=== PATIENT | female | born 2000 | race Caucasian/White ===

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

== ENCOUNTER 2021-12-06 00:42 | Emergency (ER) | payer OTHER ==
[~2021-12-06 00:42] MED LIST changes: +FLAGYL500 MG PO; +PHENERGAN 25 TA25 MG PO
[2021-12-06 00:54] VITALS: TEMP 98.1
[2021-12-06 01:26] LABS: BASO # 0.2 K/mm3 (0.0-0.2); BASO % 1.7 % (0.0-2.0); EOS # 0.1 K/mm3 (0.0-0.7); EOS % 0.9 % (0.0-4.0); GRAN # 5.3 K/mm3 (1.4-6.5); HEMATOCRIT 40.3 % (37.0-47.0); HEMOGLOBIN 13.4 g/dl (12.5-16.0); LYMPH # 2.6 K/mm3 (1.2-3.4); LYMPH % 29.7 % (20.0-51.0); MEAN CELL VOLUME 87 fl (80.0-100.0); MEAN CORPUSCULAR HEMOGLOBIN 29 pg (27-31); MEAN CORPUSCULAR HGB CONC 33 g/dl (33.0-37.0); MEAN PLATELET VOLUME 10.5 fl (7.4-10.4); MONO # 0.6 K/mm3 (0.1-0.6); MONO % 6.6 % (1.7-9.3); PLATELET COUNT 301 K/mm3 (130-400); RED BLOOD COUNT 4.61 M/mm3 (4.10-5.30); REDCELL DISTRIBUTION WIDTH-CV 12.3 % (11.5-14.5)
[2021-12-06 01:36] LABS: INR 1.1 (0.8-3.0); PARTIAL THROMBOPLASTIN TIME 30.1 SECONDS (26.0-37.0); PROTHROMBIN TIME 11.8 SECONDS (9.7-12.8)
[2021-12-06 01:40] LABS: ALBUMIN 4.1 gm/dL (3.5-5.0); BILIRUBIN,TOTAL 1.2 mg/dL (0.2-1.2); CALCIUM 9.8 mg/dL (8.4-10.2); CREATININE, serum 0.72 mg/dL (0.57-1.11); POTASSIUM 3.4 mmol/L (3.5-4.5); TOTAL PROTEIN 6.8 gm/dL (6.2-8.1)
[2021-12-06 02:20] VITALS: BP 126/86; PULSE 96
== END 2021-12-06 02:20 | disposition home or self-care (01) ==
LOC: COL.ER 00:42
PROVIDERS: Student in an Organized Health Care Education/Training Program
DX: R21 Rash and other nonspecific skin eruption (principal)

== ENCOUNTER 2022-02-08 18:33 | Emergency (ER) | payer OTHER ==
[~2022-02-08] VITALS: Ht 172.7 cm; Wt 63.6 kg
[2022-02-08 18:38] VITALS: TEMP 97.2
[2022-02-08 19:39] LABS: BILIRUBIN,TOTAL 0.8 mg/dL (0.2-1.2); CALCIUM 10.2 mg/dL (8.4-10.2); CREATININE, serum 0.81 mg/dL (0.57-1.11); POTASSIUM 3.8 mmol/L (3.5-4.5); TOTAL PROTEIN 8.6 gm/dL (6.2-8.1)
[2022-02-08 20:06] LABS: COLLECTION METHOD CLEAN CATCH
[2022-02-08 20:14] LABS: PH 7 (5-8); SQUAMOUS EPITHELIAL 0-2 /hpf (0-10); URINE APPEARANCE Clear (CLEAR/HAZY); URINE BACTERIA None Seen /hpf (NONE SEEN); URINE BILIRUBIN Negative (NEGATIVE); URINE BLOOD Negative (NEGATIVE); URINE COLOR Yellow (YELLOW); URINE GLUCOSE Negative (NEGATIVE); URINE KETONE Negative (NEGATIVE); URINE LEUKOCYTE ESTERASE Trace (NEGATIVE); URINE NITRATE Negative (NEGATIVE); URINE PROTEIN(semi-quant) Negative (NEGATIVE); URINE RBC 0-2 /hpf (0-2); URINE UROBILINOGEN Negative (NEGATIVE)
[2022-02-08 20:25] LABS: BASO % 0.4 % (0.0-2.0); EOS % 0.5 % (0.0-4.0); GRAN # 6.8 K/mm3 (1.4-6.5); GRAN % 78.8 % (42.2-75.2); HEMATOCRIT 41.2 % (37.0-47.0); HEMOGLOBIN 14.1 g/dl (12.5-16.0); LYMPH # 1.4 K/mm3 (1.2-3.4); LYMPH % 15.9 % (20.0-51.0); MEAN CELL VOLUME 87 fl (80.0-100.0); MEAN CORPUSCULAR HEMOGLOBIN 30 pg (27-31); MEAN CORPUSCULAR HGB CONC 34 g/dl (33.0-37.0); MONO # 0.4 K/mm3 (0.1-0.6); MONO % 4.3 % (1.7-9.3); PLATELET COUNT 289 K/mm3 (130-400); RED BLOOD COUNT 4.75 M/mm3 (4.10-5.30); REDCELL DISTRIBUTION WIDTH-CV 12.8 % (11.5-14.5)
[2022-02-08 21:39] VITALS: BP 135/89; PULSE 93
== END 2022-02-08 21:39 | disposition home or self-care (01) ==
LOC: COL.ER 18:33
PROVIDERS: Nurse Practitioner; Personal Emergency Response Attendant
DX: R42 Dizziness and giddiness (principal); T43.595A Adverse effect of other antipsychotics and neuroleptics, initial encounter
CPT/HCPCS: J2405; J2550; J7030

== ENCOUNTER 2022-02-13 09:36 | Outpatient (RCR) | payer OTHER | END 2022-02-25 | disposition home or self-care (01) | LOC: MKS.ESL.PT | DX: H53.9 Unspecified visual disturbance (principal); H51.11 Convergence insufficiency; G44.309 Post-traumatic headache, unspecified, not intractable; S06.0X9A Concussion with loss of consciousness of unspecified duration, initial encounter ==

== ENCOUNTER 2022-06-21 22:52 | Emergency (ER) | payer OTHER ==
[~2022-06-21] VITALS: Ht 172.7 cm; Wt 65.9 kg
[2022-06-21 23:08] VITALS: TEMP 97.5
[2022-06-22 00:05] LABS: BASO % 0.6 % (0.0-2.0); EOS % 0.6 % (0.0-4.0); GRAN # 3.7 K/mm3 (1.4-6.5); GRAN % 59.6 % (42.2-75.2); HEMATOCRIT 45.2 % (37.0-47.0); HEMOGLOBIN 15.4 g/dl (12.5-16.0); LYMPH % 32.6 % (20.0-51.0); MEAN CELL VOLUME 89 fl (80.0-100.0); MEAN CORPUSCULAR HEMOGLOBIN 30 pg (27-31); MEAN CORPUSCULAR HGB CONC 34 g/dl (33.0-37.0); MEAN PLATELET VOLUME 10.9 fl (7.4-10.4); MONO # 0.4 K/mm3 (0.1-0.6); MONO % 6.4 % (1.7-9.3); PLATELET COUNT 296 K/mm3 (130-400); RED BLOOD COUNT 5.11 M/mm3 (4.10-5.30); REDCELL DISTRIBUTION WIDTH-CV 11.6 % (11.5-14.5)
[2022-06-22 00:07] LABS: COLLECTION METHOD CLEAN CATCH
[2022-06-22 00:19] LABS: ALBUMIN 4.9 gm/dL (3.5-5.0); BILIRUBIN,TOTAL 0.9 mg/dL (0.2-1.2); CALCIUM 10.5 mg/dL (8.4-10.2); CREATININE, serum 0.78 mg/dL (0.57-1.11); POTASSIUM 3.9 mmol/L (3.5-4.5)
[2022-06-22 00:24] LABS: SQUAMOUS EPITHELIAL 0-2 /hpf (0-10); URINE BACTERIA None Seen /hpf (NONE SEEN); URINE RBC 0-2 /hpf (0-2)
[2022-06-22 00:25] LABS: URINE APPEARANCE Clear (CLEAR/HAZY); URINE COLOR Yellow (YELLOW)
[2022-06-22 00:26] LABS: URINE KETONE Negative (NEGATIVE); URINE NITRATE Negative (NEGATIVE)
[2022-06-22 00:31] LABS: URINE GLUCOSE Negative (NEGATIVE); URINE PROTEIN(semi-quant) Negative (NEGATIVE); URINE UROBILINOGEN 0.2 E.U/dL (0.2-1.0)
[2022-06-22 00:32] LABS: URINE BLOOD Negative (NEGATIVE)
[2022-06-22] MEDS ORDERED: LAMISIL250 M1 PO (01:13)
[2022-06-22 01:32] VITALS: BP 122/81; PULSE 80
== END 2022-06-22 01:32 | disposition home or self-care (01) ==
LOC: COL.ER 22:52
PROVIDERS: Emergency Medicine
DX: R55 Syncope and collapse (principal); B35.1 Tinea unguium; Z20.822 Contact with and (suspected) exposure to COVID-19; Z28.310 Unvaccinated for COVID-19
CPT/HCPCS: J7030